=== PATIENT | male | born 1995 | race Caucasian/White ===

== ENCOUNTER 2017-01-02 03:01 | Emergency (ER) | payer SELFPAY ==
[~2017-01-02] VITALS: Ht 177.8 cm; Wt 81.6 kg
[2017-01-02 03:10] VITALS: BP 129/85
--- NOTE | 2017-01-02 03:27 | Emergency Room Report ---
History of Present Illness General Chief Complaint: Upper Extremity Injury Source: Patient Present Illness HPI Patient fell in a bar. He hit his right hand. He has swelling and pain there. His knuckle disappeared on his little finger. He denies any numbness. He is able to make a fist. He is right-handed and works lifting boxes. He did drink alcohol. He denies punching anything or anyone. Pain reported 10/10, constant , sharp/aching, not radiating. He admits to prior hand injury many years ago in an accident. No head injury, chest pain, NVD, seizures, bleeding. Allergies: Coded Allergies: No Known Allergies (Unverified , 01/02/17) Patient History Past Medical History: see triage record Social History: Reports: alcohol use Social History Narrative lifts boxes Reviewed Nursing Documentation: PMH: Agreed, PSxH: Agreed Nursing Documentation-PMH Past Medical History: No Stated History Review of Systems All Other Systems: negative except mentioned in HPI Physical Exam Vital Signs Date Time Temp Pulse Resp B/P Pulse Ox O2 Delivery O2 Flow Rate FiO2 01/02/17 03:05 98.2 83 16 129/85 96 Room Air Sp02 EP Interpretation: reviewed, normal General Appearance: well appearing, no apparent distress, GCS 15 Head: normocephalic, atraumatic Eyes: bilateral eye PERRL, bilateral eye Scleral Injection ENT: moist mucus membranes Neck: full range of motion, supple Respiratory: no respiratory distress, speaking full sentences Cardiovascular #2: 2+ radial (R) - good capillary fill Gastrointestinal: normal inspection Musculoskeletal: digits/nails normal, gait/station normal, decreased range of mation, swelling, other - defomrity of 5th MC, elbow and wrist without tenderness Neurologic: motor strength/tone normal, sensory intact Psychiatric: mood/affect normal Skin: normal inspection, normal color Medical Decision Making Diagnostic Impression: Primary Impression: Boxer's fracture Qualified Codes: S62.309A - Unspecified fracture of unspecified metacarpal bone, initial encounter for closed fracture ER Course The patient presents with pain swelling and deformity of his little finger metacarpal of. Differential includes fracture, contusion, dislocation. Based on his exam suspicion is high for fracture. X-rays are indicated and also patient be treated with Motrin. Xrays + fracture 5th MC. There's or deformity here and he states that he had a previous injury. Accident. Splint is applied by the tach a physician is good neurovascular is normal. In addition a sling was placed and the position was good and the patient had improvement neurovascular was checked by me. Patient having difficulty accepting treatment plan with splint as he uses hand at work. Patient stable for outpatient observation and treatment. Other X-Ray Diagnostic Results Other X-Ray Diagnostic Results : X-Ray Ordered: R hand EP Interpretation: Yes Findings: no dislocation, other - fx, STS Number of Views: 3 Last Vital Signs Date Time Temp Pulse Resp B/P Pulse Ox O2 Delivery O2 Flow Rate FiO2 01/02/17 04:20 98.2 83 16 129/85 96 Room Air Status: improved Disposition: HOME, SELF-CARE Condition: Improved Scripts Tramadol Hcl* (ULTRAM*) 50 Mg Tablet 50 MG ORAL Q6H Y for For Pain, #12 TAB 0 Refills Prov: Roberto Smith M.D. 01/02/17 Ibuprofen* (MOTRIN*) 600 Mg Tablet 600 MG ORAL Q6H Y for For Pain, #20 TAB Prov: Roberot Smith M.D. 01/02/17 Roberto Smith M.D. Jan 02, 2017 03:27
[2017-01-02] MEDS ORDERED: IBUPROFEN600 MG ORAL (04:16)
[2017-01-02] MEDS ORDERED: TRAMADOL HCL50 MG ORAL (04:16)
[2017-01-02 04:20] VITALS: BP 129/85
--- NOTE | 2017-01-03 09:06 | Diagnostic Imaging Report ---
Indication: TRAUMA Technique: XRAY HAND MIN 3V RIGHT Comparison: None. Findings: There is fracture of the fifth metacarpal with palmar angulation. There is deformity of the fifth metacarpal as well. The remaining bones are intact. Joints are normal. Tissue swelling is present. Impression: Acute fifth metacarpal fracture with palmar angulation. Old deformity of the fifth metacarpal related to old fracture.
== END 2017-01-02 04:20 | disposition home or self-care (01) ==
LOC: EMR 03:24
DX: S62.309A Unspecified fracture of unspecified metacarpal bone, initial encounter for closed fracture (principal); W18.30XA Fall on same level, unspecified, initial encounter; Y92.511 Restaurant or cafe as the place of occurrence of the external cause; Y99.8 Other external cause status
CPT/HCPCS: 29125; 29240; 99284